=== PATIENT | male | born 1975 | race Caucasian/White ===

== ENCOUNTER 2018-08-18 19:02 | Inpatient (IN) | payer MEDICAID ==
[~2018-08-18] VITALS: Ht 185.4 cm; Wt 109.1 kg
[~2018-08-18 19:02] MED LIST: IBUP-1051 PO; NO HOME MEDS
[2018-08-18] MEDS ORDERED: mag hydrox/Alum hydrox/simeth 30ml oral suspension PO ONE (19:30)
[2018-08-18] MEDS ORDERED: LIDOcaine Viscous 15ml cup PO ONE (19:30)
[2018-08-18] MEDS ORDERED: ondansetron/PF 4mg/2ml inj IV ONE (19:30)
[2018-08-18] MEDS ORDERED: fentaNYL/PF 50MCG/1 ML 2ML syringe IV ONE (19:30)
[2018-08-18] MEDS ORDERED: iohexol 350MG/ML 100ml bottle IV ONE (19:39)
[2018-08-18 19:51] LABS: BASOPHILS # (AUTO) 0.1 X10'3 (0-0.2); BASOPHILS % (AUTO) 0.6 % (0-1); EOSINOPHILS # (AUTO) 0.3 X10'3 (0-0.9); EOSINOPHILS % (AUTO) 1.9 % (0-6); HEMATOCRIT 48.2 % (42.0-52.0); HEMOGLOBIN 16.5 g/dl (14.0-17.9); LYMPHOCYTES # (AUTO) 2.7 X10'3 (1.1-4.8); LYMPHOCYTES % (AUTO) 19.6 % (21-51); MEAN CORPUSCULAR HEMOGLOBIN 30.4 PG (27.0-31.0); MEAN CORPUSCULAR HGB CONC 34.3 g/dL (33.0-36.5); MEAN CORPUSCULAR VOLUME 88.8 FL (78-98); MEAN PLATELET VOLUME 7.7 FL (7.4-10.4); MONOCYTES # (AUTO) 1.1 X10'3 (0-0.9); MONOCYTES % (AUTO) 7.8 % (2-12); NEUTROPHILS # (AUTO) 9.8 X10'3 (1.8-7.7); NEUTROPHILS % (AUTO) 70.1 % (42-75); PLATELET COUNT 358 X10'3 (140-440); RED BLOOD COUNT 5.43 X10'6 (4.70-6.10); RED CELL DISTRIBUTION WIDTH 13.5 % (11.5-14.5); WHITE BLOOD COUNT 13.9 X10'3 (4.5-11.0)
[2018-08-18 20:01] LABS: PARTIAL THROMBOPLASTIN TIME 25 SECONDS (22-32)
[2018-08-18 20:04] LABS: ALANINE AMINOTRANSFERASE 22 U/L (12-78); ALBUMIN 4.1 G/DL (3.4-5.0); ALBUMIN/GLOBULIN RATIO 1.2 (1.1-1.5); ALKALINE PHOSPHATASE 104 IU/L (46-116); ANION GAP 10 (8-16); ASPARTATE AMINO TRANSFERASE 17 U/L (10-37); BILIRUBIN,TOTAL 0.2 MG/DL (0.1-1.0); BLOOD UREA NITROGEN 14 MG/DL (7-18); CALCIUM 8.9 MG/DL (8.5-10.1); CHLORIDE 105 MMOL/L (99-107); CREATININE 1.17 MG/DL (0.60-1.10); GLUCOSE 108 MG/DL (70-104); POTASSIUM 3.7 MMOL/L (3.5-5.1); SODIUM 141 MMOL/L (135-145); TOTAL PROTEIN 7.5 G/DL (6.4-8.2); eGFR 67 ML/MIN
--- NOTE | 2018-08-18 20:20 | NUR ---
REPORT CALLED FROM ER BY MARCELLA DONATO.
[2018-08-18] MEDS ORDERED: normal saline 1000ML IV soln IVB ONE (20:30)
[2018-08-18 20:50] LABS: URINE AMPHETAMINE SCREEN POSITIVE (Neg); URINE BARBITUATE SCREEN NEGATIVE (Neg); URINE BENZODIAZEPINES SCREEN NEGATIVE (Neg); URINE CANNABINOID SCREEN NEGATIVE (Neg); URINE COCAINE SCREEN NEGATIVE (Neg); URINE METHADONE SCREEN NEGATIVE (Neg); URINE OPIATE SCREEN NEGATIVE (Neg); URINE PHENCYCLIDINE SCREEN NEGATIVE (Neg)
[2018-08-18 20:51] LABS: ETHANOL < 0.010 GM/DL (0.0-0.010)
[2018-08-18 21:06] LABS: LIPASE > 30000 U/L (73-393)
[2018-08-18] MEDS ORDERED: morphine 4 MG/ML inj SYRINge IV ONE (21:25)
[2018-08-18] MEDS ORDERED: HYDROcodone/acetaminophen 5mg/325mg tablet PO PRN (21:50)
[2018-08-18] MEDS ORDERED: magnesium hydroxide 30ml (MOM) UD suspension PO PRN (21:50)
[2018-08-18] MEDS ORDERED: mag hydrox/Alum hydrox/simeth 30ml oral suspension PO PRN (21:50)
[2018-08-18] MEDS ORDERED: morphine 2 MG/ML inj. syringe IV PRN (21:50)
[2018-08-18] MEDS ORDERED: acetaminophen 325mg tablet PO PRN ×2 (21:50)
[2018-08-18] MEDS ORDERED: ondansetron/PF 4mg/2ml inj IV PRN (21:50)
[2018-08-18] MEDS ORDERED: MULT-933 PO (21:59)
[2018-08-18 22:30] LABS: HEMOGLOBIN A1C 4.9 % (4.5-6.2)
--- NOTE | 2018-08-18 22:40 | NUR ---
pt brought to floor via gurney. pt placed in room, oriented and items of frequent use placed within reach. Addendum: 08/19/18 at 0250 by Len Anaya RN pt brought to floor via gurney. pt placed in room, oriented and items of frequent use placed within reach. VISITORS AT BEDSIDE, VITALS STABLE, BP ELEVATED, AWARE, WILL RECHECK IN ONE HOUR. WILL CONTINUE TO MONITOR*
[2018-08-18] MEDS: morphine 2 MG/ML inj. syringe IV PRN (23:03)
--- NOTE | 2018-08-18 23:30 | NUR ---
Discussed pt's BP of 180's/[address] Conn. He felt that high BP was related to his pain at this time and stated to use [place] and Morphine to get it under control. Will give medications as ordered and continue to monitor pt.
[2018-08-19] VITALS (7 sets, daily range): BP systolic 147–198; BP diastolic 90–113
[2018-08-19] MEDS ORDERED: LORazepam 0.5 MG tablet PO PRN (00:15)
[2018-08-19] MEDS: normal saline 1000ml 1,000 ML IV SCH ×2 (00:36→11:35)
[2018-08-19] MEDS: HYDROcodone/acetaminophen 10/325mg tab PO PRN ×3 (02:36→19:35)
[2018-08-19] MEDS: morphine 2 MG/ML inj. syringe IV PRN ×4 (04:37→22:26)
[2018-08-19 05:17] LABS: BASOPHILS % (AUTO) 0.2 % (0-1); EOSINOPHILS % (AUTO) 0.1 % (0-6); HEMATOCRIT 46.2 % (42.0-52.0); HEMOGLOBIN 15.6 g/dl (14.0-17.9); LYMPHOCYTES # (AUTO) 0.9 X10'3 (1.1-4.8); LYMPHOCYTES % (AUTO) 5.8 % (21-51); MEAN CORPUSCULAR HEMOGLOBIN 29.9 PG (27.0-31.0); MEAN CORPUSCULAR HGB CONC 33.9 g/dL (33.0-36.5); MEAN CORPUSCULAR VOLUME 88.4 FL (78-98); MEAN PLATELET VOLUME 7.7 FL (7.4-10.4); MONOCYTES # (AUTO) 0.8 X10'3 (0-0.9); MONOCYTES % (AUTO) 5.1 % (2-12); NEUTROPHILS # (AUTO) 13.8 X10'3 (1.8-7.7); NEUTROPHILS % (AUTO) 88.8 % (42-75); PLATELET COUNT 295 X10'3 (140-440); RED BLOOD COUNT 5.23 X10'6 (4.70-6.10); RED CELL DISTRIBUTION WIDTH 13.8 % (11.5-14.5); WHITE BLOOD COUNT 15.5 X10'3 (4.5-11.0)
--- NOTE | 2018-08-19 05:51 | NUR ---
Student documentation: I have reviewed and agree with all interventions, assessments performed and documented by Rigoberto NARANJO. Addendum: 08/19/18 at 0551 by Tricia Corona RN Amended: Links added.
[2018-08-19 05:54] LABS: ALBUMIN 3.7 G/DL (3.4-5.0); ANION GAP 9 (8-16); BLOOD UREA NITROGEN 13 MG/DL (7-18); BUN/CREATININE RATIO 13.3 (5.4-32.0); CALCIUM 8.3 MG/DL (8.5-10.1); CHLORIDE 105 MMOL/L (99-107); CHOL/HDL RATIO 2.2 (0.00-4.99); CHOLESTEROL 110 MG/DL (0-200); CREATININE 0.98 MG/DL (0.60-1.10); GLUCOSE 105 MG/DL (70-104); HDL CHOLESTEROL 51 MG/DL (35-60); LDL CHOLESTEROL 53 MG/DL (50-100); POTASSIUM 4.1 MMOL/L (3.5-5.1); SODIUM 139 MMOL/L (135-145); TRIGLYCERIDES 46 MG/DL (20-135); eGFR 83 ML/MIN
--- NOTE | 2018-08-19 06:28 | NUR ---
Problems reprioritized. Patient report given, questions answered & plan of care reviewed with Nakia RN.
--- NOTE | 2018-08-19 06:33 | NUR ---
Problems reprioritized. Patient report given, questions answered & plan of care reviewed with MARCELLA Yee.
--- NOTE | 2018-08-19 06:35 | NUR ---
Patient in room [facility]. I have received report from Rigoberto RN and Tricia RN and had the opportunity to ask questions and assume patient care.
[2018-08-19] MEDS: enoxaparin 40mg/0.4ml syringe SUBCUT SCH (08:08)
--- NOTE | 2018-08-19 08:15 | NUR ---
Paged Dr. Paz regarding this patient's high blood pressure this am. 195/98. notified no further orders at this time. Rechecked BP 188/103-will continue to monitor.
[2018-08-19] MEDS ORDERED: haloperidol 5mg tablet PO PRN (08:45)
[2018-08-19] MEDS ORDERED: magnesium Cl slow-release 64mg tablet PO PRN (08:45)
[2018-08-19] MEDS ORDERED: thiamine inj. 100 MG in normal saline 100ml IV soln 100 ML IV ONE (08:45)
[2018-08-19] MEDS ORDERED: potassium CL 10mEq/100ml bag 100 ML IV PRN (08:45)
[2018-08-19] MEDS ORDERED: mag hydrox/Alum hydrox/simeth 30ml oral suspension PO PRN (08:45)
[2018-08-19] MEDS ORDERED: haloperidol lactate 5mg/ml inj IM PRN (08:45)
[2018-08-19] MEDS ORDERED: potassium Cl 20 mEq SR tablet PO PRN ×2 (08:45)
[2018-08-19] MEDS ORDERED: LORazepam 2 mg/ml vial IV PRN (08:45)
[2018-08-19] MEDS ORDERED: magnesium 4gm in 100ml NS 100 ML IV PRN (08:45)
[2018-08-19] MEDS ORDERED: LORazepam 1 MG tablet PO PRN (08:45)
[2018-08-19] MEDS ORDERED: amLODIPine 5mg tablet PO ONE ×2 (09:20→13:55)
[2018-08-19] MEDS: hydrALAZINE 20mg/ml inj. IV PRN ×2 (11:56→17:11)
--- NOTE | 2018-08-19 12:49 | NUR ---
Patient's blood pressure still high with [address] Paz's orders, gave patient 10 mg hydralazine. Rechecked BP and patient's blood pressure now 193/113. notified. Will continue to monitor.
[2018-08-19] MEDS ORDERED: hydrALAZINE 20mg/ml inj. IV ONE (13:00)
--- NOTE | 2018-08-19 13:40 | NUR ---
Per MD orders, gave patient another 10 mg hydralazine and ativan. Patient's blood pressure still high at 190/107. MD notified. awaiting further orders.
[2018-08-19] MEDS ORDERED: cloNIDine 0.1 mg tablet PO ONE (13:55)
--- NOTE | 2018-08-19 15:00 | NUR ---
Per , gave patient Norvasc one time 5 mg and clonidine 0.2 mg. Rechecked pt BP, now 207/112. notified and per Dr. Paz, "not to recheck blood pressure until 1700."
--- NOTE | 2018-08-19 17:26 | NUR ---
Patient's blood pressure now 179/102. Pulse now fluctuating between 110-120. Oxygen saturation 92-93 on room air. notified.
--- NOTE | 2018-08-19 18:20 | NUR ---
Patient in room [facility]. I have received report from MARCELLA ROSS and had the opportunity to ask questions and assume patient care.
[2018-08-19] MEDS ORDERED: lipase/protease/amylase 20,000 unit capsule.DR PO SCH (18:30)
--- NOTE | 2018-08-19 18:37 | NUR ---
Problems reprioritized. Patient report given, questions answered & plan of care reviewed with MARCELLA Elmore.
[2018-08-19] MEDS: cloNIDine 0.1 mg tablet PO SCH (19:36)
[2018-08-19] MEDS: dextrose 5%-1/4 normal saline 1,000 ML IV SCH (19:37)
[2018-08-19 19:58] LABS: UA COLLECTION TYPE NON-SPECIFIED
[2018-08-19 19:59] LABS: CLARITY,URINE CLEAR (Clear); COLOR,URINE YELLOW (Yellow); GLUCOSE, URINE NEGATIVE (Neg); KETONES,URINE NEGATIVE (Neg); LEUKOCYTE ESTERASE ,URINE NEGATIVE (Neg); NITRITES, URINE NEGATIVE (Neg); OCCULT BLOOD,URINE NEGATIVE (Neg); PROTEIN,URINE NEGATIVE (Neg); UROBILINOGEN,URINE 0.2 E.U/dL (0.2-1.0)
[2018-08-20] VITALS: BP 177/103
[2018-08-20] MEDS: hydrALAZINE 20mg/ml inj. IV PRN ×2 (00:29→09:38)
[2018-08-20 02:00] VITALS: BP 145/84
[2018-08-20] MEDS: morphine 2 MG/ML inj. syringe IV PRN ×5 (03:18→20:33)
[2018-08-20 04:40] LABS: BASOPHILS % (AUTO) 0.2 % (0-1); EOSINOPHILS # (AUTO) 0.2 X10'3 (0-0.9); EOSINOPHILS % (AUTO) 1.4 % (0-6); HEMATOCRIT 44.1 % (42.0-52.0); HEMOGLOBIN 15.1 g/dl (14.0-17.9); LYMPHOCYTES % (AUTO) 5.6 % (21-51); MEAN CORPUSCULAR HEMOGLOBIN 30.4 PG (27.0-31.0); MEAN CORPUSCULAR HGB CONC 34.3 g/dL (33.0-36.5); MEAN CORPUSCULAR VOLUME 88.7 FL (78-98); MEAN PLATELET VOLUME 7.9 FL (7.4-10.4); MONOCYTES # (AUTO) 1.1 X10'3 (0-0.9); MONOCYTES % (AUTO) 6.4 % (2-12); NEUTROPHILS # (AUTO) 15.1 X10'3 (1.8-7.7); NEUTROPHILS % (AUTO) 86.4 % (42-75); PLATELET COUNT 286 X10'3 (140-440); RED BLOOD COUNT 4.97 X10'6 (4.70-6.10); RED CELL DISTRIBUTION WIDTH 13.8 % (11.5-14.5); WHITE BLOOD COUNT 17.4 X10'3 (4.5-11.0)
[2018-08-20] MEDS: dextrose 5%-1/4 normal saline 1,000 ML IV SCH ×3 (04:49→18:07)
[2018-08-20 05:00] LABS: ALBUMIN 3.2 G/DL (3.4-5.0); AMYLASE 445 U/L (25-115); ANION GAP 8 (8-16); BLOOD UREA NITROGEN 10 MG/DL (7-18); BUN/CREATININE RATIO 13.5 (5.4-32.0); CHLORIDE 101 MMOL/L (99-107); CREATININE 0.74 MG/DL (0.60-1.10); GLUCOSE 101 MG/DL (70-104); MAGNESIUM 1.8 MG/DL (1.5-2.4); PHOSPHORUS 2.9 MG/DL (2.3-4.5); POTASSIUM 3.5 MMOL/L (3.5-5.1); SODIUM 133 MMOL/L (135-145); TOTAL CARBON DIOXIDE 24.4 MMOL/L (24-32); eGFR > 90 ML/MIN
[2018-08-20 05:02] LABS: LIPASE 1838 U/L (73-393)
--- NOTE | 2018-08-20 06:17 | NUR ---
Problems reprioritized. Patient report given, questions answered & plan of care reviewed with RN VANDANA.
--- NOTE | 2018-08-20 06:27 | NUR ---
Patient in room [facility]. I have received report from MARCELLA Elmore and had the opportunity to ask questions and assume patient care.
[2018-08-20] MEDS: thiamine 100mg tablet PO SCH (07:57)
[2018-08-20] MEDS: amLODIPine 5mg tablet PO SCH (07:57)
[2018-08-20] MEDS: multivitamins, therapeutics tablet PO SCH (07:57)
[2018-08-20] MEDS: folic acid 1mg tablet PO SCH (07:58)
[2018-08-20] MEDS: lipase/protease/amylase 20,000 unit capsule.DR PO SCH ×3 (07:58→18:06)
[2018-08-20] MEDS: cloNIDine 0.1 mg tablet PO SCH ×2 (07:58→20:33)
[2018-08-20] MEDS: enoxaparin 40mg/0.4ml syringe SUBCUT SCH (07:59)
[2018-08-20 08:00] VITALS: BP 179/104
[2018-08-20] MEDS ORDERED: amLODIPine 5mg tablet PO SCH (08:00)
[2018-08-20] MEDS ORDERED: non-formulary drug (Multivitamin (One Daily Multivitamin) 1 TAB) PO SCH (08:00)
[2018-08-20 10:00] VITALS: BP 148/89
[2018-08-20 12:00] VITALS: BP 158/98
[2018-08-20 18:00] VITALS: BP 153/98
[2018-08-20] MEDS: HYDROcodone/acetaminophen 10/325mg tab PO PRN (18:06)
--- NOTE | 2018-08-20 18:37 | NUR ---
Patient in room [facility]. I have received report from MARCELLA Early and had the opportunity to ask questions and assume patient care.
--- NOTE | 2018-08-20 18:50 | NUR ---
Problems reprioritized. Patient report given, questions answered & plan of care reviewed with MARCELLA Garcia.
[2018-08-21] VITALS: BP 159/92
[2018-08-21] MEDS: morphine 2 MG/ML inj. syringe IV PRN ×3 (00:30→10:03)
[2018-08-21 04:49] LABS: BASOPHILS % (AUTO) 0.3 % (0-1); EOSINOPHILS # (AUTO) 0.4 X10'3 (0-0.9); EOSINOPHILS % (AUTO) 2.7 % (0-6); HEMATOCRIT 41.6 % (42.0-52.0); HEMOGLOBIN 14.4 g/dl (14.0-17.9); LYMPHOCYTES # (AUTO) 1.2 X10'3 (1.1-4.8); LYMPHOCYTES % (AUTO) 7.7 % (21-51); MEAN CORPUSCULAR HEMOGLOBIN 30.7 PG (27.0-31.0); MEAN CORPUSCULAR HGB CONC 34.6 g/dL (33.0-36.5); MEAN CORPUSCULAR VOLUME 88.8 FL (78-98); MONOCYTES # (AUTO) 1.3 X10'3 (0-0.9); MONOCYTES % (AUTO) 8.3 % (2-12); NEUTROPHILS # (AUTO) 12.3 X10'3 (1.8-7.7); PLATELET COUNT 281 X10'3 (140-440); RED BLOOD COUNT 4.69 X10'6 (4.70-6.10); RED CELL DISTRIBUTION WIDTH 13.6 % (11.5-14.5); WHITE BLOOD COUNT 15.2 X10'3 (4.5-11.0)
[2018-08-21 04:55] LABS: AMYLASE 168 U/L (25-115); ANION GAP 9 (8-16); BLOOD UREA NITROGEN 9 MG/DL (7-18); CALCIUM 8.6 MG/DL (8.5-10.1); CHLORIDE 101 MMOL/L (99-107); CREATININE 0.75 MG/DL (0.60-1.10); GLUCOSE 87 MG/DL (70-104); LIPASE 319 U/L (73-393); MAGNESIUM 1.9 MG/DL (1.5-2.4); PHOSPHORUS 2.7 MG/DL (2.3-4.5); POTASSIUM 3.7 MMOL/L (3.5-5.1); SODIUM 134 MMOL/L (135-145); TOTAL CARBON DIOXIDE 23.9 MMOL/L (24-32); eGFR > 90 ML/MIN
--- NOTE | 2018-08-21 06:19 | NUR ---
Problems reprioritized. Patient report given, questions answered & plan of care reviewed with MARCELLA Early.
--- NOTE | 2018-08-21 06:22 | NUR ---
Patient in room [facility]. I have received report from MARCELLA Garcia and had the opportunity to ask questions and assume patient care.
[2018-08-21 07:00] VITALS: BP 169/97
[2018-08-21] MEDS: lipase/protease/amylase 20,000 unit capsule.DR PO SCH ×2 (07:42→12:30)
[2018-08-21] MEDS: folic acid 1mg tablet PO SCH (07:42)
[2018-08-21] MEDS: multivitamins, therapeutics tablet PO SCH (07:42)
[2018-08-21] MEDS: thiamine 100mg tablet PO SCH (07:42)
[2018-08-21] MEDS: enoxaparin 40mg/0.4ml syringe SUBCUT SCH (07:42)
[2018-08-21] MEDS: amLODIPine 5mg tablet PO SCH (07:42)
[2018-08-21] MEDS: cloNIDine 0.1 mg tablet PO SCH (07:43)
[2018-08-21 08:38] VITALS: BP 152/92
[2018-08-21] MEDS ORDERED: AMYL1CAP62 PO (09:31)
[2018-08-21] MEDS ORDERED: NOR5T PO (09:31)
[2018-08-21] MEDS ORDERED: FOLI1TAB16 PO (09:31)
[2018-08-21] MEDS ORDERED: thiamine tablet PO (09:31)
[2018-08-21] MEDS ORDERED: CLON0.1T20 PO (09:31)
[2018-08-21] MEDS ORDERED: PANT-47 PO (09:31)
[2018-08-21 11:00] VITALS: BP 129/93
== END 2018-08-21 12:15 | disposition home or self-care (01) | DRG 282 ==
LOC: ER 19:02 → SUR 3N 22:02 → CMPBEDREQ 22:50
PROVIDERS: ADMIT Internal Medicine; ATTEND Family Medicine
PROC: BW241ZZ Computerized Tomography (CT Scan) of Chest and Abdomen using Low Osmolar Contrast (ICD-10-PCS; principal; 2018-08-18)
DX: K85.20 Alcohol induced acute pancreatitis without necrosis or infection (principal); N17.9 Acute kidney failure, unspecified; F10.10 Alcohol abuse, uncomplicated; F15.10 Other stimulant abuse, uncomplicated; I16.0 Hypertensive urgency; Z79.899 Other long term (current) drug therapy; Z71.41 Alcohol abuse counseling and surveillance of alcoholic
CPT/HCPCS: 36415; 71045; 71275; 74174; 76700; 80048; 80053; 80061; 80305; 80320; 81003; 82150; 83036; 83690; 83735; 83880; 84100; 84145; 84484; 85025; 85610; 85730; 87070; 93005; 96374; 99285; G0378; J0360; J1650; J2270; J2405; J3010; J3411; J7030; Q9967

== ENCOUNTER 2019-03-06 11:34 | Emergency (ER) | payer MEDICAID ==
[~2019-03-06] VITALS: Ht 185.4 cm; Wt 115.0 kg
[~2019-03-06 11:34] MED LIST changes: +AMYL1CAP62 PO; +CLON0.1T2 PO; +FOLI1TAB16 PO; -IBUP-1051 PO; +MULT-933 PO; -NO HOME MEDS; +NOR5T PO; +PANT-47 PO; +thiamine tablet PO
[2019-03-06] MEDS ORDERED: ziprasidone IM 20mg inj **IM only IM ONE (12:30)
[2019-03-06 16:26] VITALS: BP 151/97
--- NOTE | 2019-03-06 16:50 | NUR ---
PATIENT AMBULATED AROUND UNIT WITH STEADY GAIT. DEPARTED FROM UNIT, ACCOMPANIED BY MOTHER, BEFORE SIGNING DISCHARGE PAPERWORK. PATIENT IN GOOD CONDITION AT DEPARTURE.
== END 2019-03-06 17:49 | disposition home or self-care (01) ==
LOC: ER 11:34
DX: R51 Headache (principal); F15.10 Other stimulant abuse, uncomplicated; Z98.890 Other specified postprocedural states; Z56.0 Unemployment, unspecified; Z79.2 Long term (current) use of antibiotics; Z79.899 Other long term (current) drug therapy
CPT/HCPCS: 70450; 96372; 99284; J3486